=== PATIENT | male | born 1995 | race Caucasian/White ===

== ENCOUNTER 2018-01-28 11:04 | Inpatient (IN) ==
[2018-01-28] MEDS ORDERED: Tetanus/Diphtheria Toxoid Adult Vaccine Inj 0.5 ML Vial IM ONE (12:06)
[2018-01-28] MEDS ORDERED: Lidocaine PF 1% Inj 30 ML Vial INFILTRATN ONE (12:34)
--- NOTE | 2018-01-28 12:52 | XR ---
EXAM DATE: 01/28/2018 12:48 PM EST AGE/SEX: 22 years / Male INDICATIONS: Right hand, second digit pain after being sliced by a washer drawer. CLINICAL DATA: This is the patient's initial encounter. Patient reports that signs and symptoms have been present for 1 day and indicates a pain score of 10/10. MEDICAL/SURGICAL HISTORY: None. None. COMPARISON: No prior exams available for comparison. FINDINGS: There is a soft tissue injury at the distal aspect of the second digit with agitation of the distal s oft tissues. There also appears to be fracturing at the distal aspect of the tuft of the second dista l phalanx. Remaining bony structures appear intact. CONCLUSION: Amputation at the distal aspect of the second digit with some fracturing at the superior aspect of th e tuft of the second distal phalanx. Electronically signed by: Francisco Wilson MD 01/28/2018 12:51 PM EST
--- NOTE | 2018-01-28 13:37 | ED ---
HPI General Chief Complaint: Skin/Abscess/Foreign Body Stated Complaint: Poss Finger Cut off Time Seen by Provider: 01/28/18 11:44 History of Present Illness HPI narrative: 22-year-old male presents to the emergency department with complaint of cutting the tip of his right index finger off between a washing machine in a cabinet when moving it today while at work. Left hand dominant. Unknown tetanus status and needs it updated. Denies paresthesias, loss of sensation, decreased range of motion to the affected finger. Rates pain 8/10. Has applied pressure and a dressing for symptom management. No other treatments tried. History of depression. No known allergies. No primary care provider. Has no other medical complaints. No other modifying factors or associated signs and symptoms. 2 1. Amputation of tip of finger Related Data Home Medications Medication Instructions Recorded Confirmed sertraline [Zoloft] 50 mg PO BID 01/28/18 01/28/18 Allergies Allergy/AdvReac Type Severity Reaction Status Date / Time No Known Allergies Allergy Verified 01/28/18 11:37 Review of Systems ROS: all other systems reviewed are negative [facility] Medical History Medical History Depression (Acute) Family History Family History Other Diabetes Heart attack Social History Social History Substance History: No History of Abuse Second Hand Smoke Exposure: No Smoking Status: Former smoker Tobacco Type: E-Cigarettes How Often Do You Have a Drink Containing Alcohol: Never Recent Travel in [facility] within the Last 8 Weeks: No Recent Out of Country Travel within the Last 8 Weeks: No Immunization History Tetanus Immunization: Unsure Exam Narrative Exam Narrative: GENERAL: Well-nourished, well-developed male patient, in no acute distress SKIN: Warm and dry. Distal, lateral aspect of right index finger with partial amputation, involving nail bed; bleeding controlled; fingers pink and warm with good cap refill and sensory intact; full range of motion. HEAD: Atraumatic. Normocephalic. EYES: Pupils equal and round. No scleral icterus. No injection or drainage. ENT: Mucosa pink and moist. Airway patent. NECK: Trachea midline. CARDIOVASCULAR: Regular rate. RESPIRATORY: No accessory muscle use. GASTROINTESTINAL: Flat. MUSCULOSKELETAL: No obvious deformities. No clubbing. No cyanosis. No edema. NEUROLOGICAL: Awake and alert. Oriented 3. No obvious cranial nerve deficits. Motor grossly within normal limits. Normal speech. PSYCHIATRIC: Appropriate mood and affect; insight and judgment normal. Procedures Laceration Laceration 1: Site: hand (Right index finger) Side (If applicable): right Size (cm): 1.5 Description: other (Partial amputation of tip of finger) Anesthetic used: lidocaine 1% Anesthesia technique:: nerve block (Digital block) Pre-repair:: wound explored and irrigated extensively Skin layer closed with: prolene Size (cm): 3-0 Number of sutures:: 1 Technique:: horizontal mattress Course Initial Documented Vital Signs Temperature 98.6 F 01/28/18 11:11 Pulse Rate 84 01/28/18 11:11 Respiratory Rate 17 01/28/18 11:11 Blood Pressure 129/87 01/28/18 11:11 Pulse Oximetry 98 01/28/18 11:11 Last Documented Vital Signs Temperature 98.6 F 01/28/18 22:30 Pulse Rate 85 01/28/18 22:30 Respiratory Rate 15 01/28/18 22:30 Blood Pressure 120/68 01/28/18 22:30 Pulse Oximetry 100 01/28/18 22:30 Medical Decision Making RAFIQ Attestation RAFIQ supervised visit: Yes Attestation: I, Dr. Amaro, have reviewed the advance practice practitioner's documentation and am in agreement, met with the patient face to face, made the diagnosis, and the medical decision making was done by me. *My assessment and Findings: Patient is a 22-year-old male who presents after a finger injury. He was seen primarily by the [facility] contacted hand surgery. The hand surgeon medical transcription radiology asked her to try in close the flap. She tried several times but was unable to do so successfully in the emergency department. She then called the hand surgeon back who recommended admission and operative repair. Patient was admitted to Dr. Arreola, hospitalist medical transcription radiology for further evaluation and management. Tetanus was updated and he was given Ancef. Of note the patient's father became belligerent while in the emergency department (while awaiting for the call back from the hand surgeon) and had to be asked to step away for a short period of time. He eventually calmed down and was brought back into the room. MDM Narrative Medical decision making narrative: 22-year-old male with partial amputation of the tip of his right index finger. Tetanus updated in the ER. Right index finger x-ray ordered. [place] ordered for pain. Right index finger x-ray concludes: Amputation at the distal aspect of the second digit with some fracturing at the superior aspect of the tuft of the second distal phalanx. IV site obtained and 1 g of Ancef ordered. Call placed to hand surgeon. I spoke with Dr. Barlow, hand surgeon and she would like me to attempt to approximate the amputation and to cover the bone. See my procedure note for laceration repair. I was unable to approximate the wound well enough to cover the exposed bone. I called and spoke with Dr. Jory Barlow and the patient will be admitted and she will take the patient to the OR. Preop labs ordered. Patient is experiencing increase in pain to the finger; morphine and Zofran ordered. Patient admitted to medical. Medical Screen Exam Complete: Yes Emergency Medical Condition: Yes Differential Diagnosis Differential Diagnosis: Amputation, skin avulsion, laceration Lab Data Result diagrams: 01/28/18 17:30 01/28/18 17:30 Lab Results 01/28/18 01/28/18 01/28/18 Range/Units 17:30 17:30 17:30 WBC 9.4 (4.0-11.0) th/mm3 RBC 5.18 (4.50-5.90) mil/mm3 Hgb 16.0 (13.0-17.0) gm/dL Hct 48.1 (39.0-51.0) % MCV 92.7 (80.0-100.0) fL MCH 30.9 (27.0-34.0) pg MCHC 33.4 (32.0-36.0) % RDW 15.6 (11.6-17.2) % Plt Count 162 (150-450) th/mm3 MPV 7.8 (7.0-11.0) fL Prelim Diff (Auto) Slide review pending Neut % (Auto) 71.3 H (16.0-70.0) % Lymph % (Auto) 20.6 (9.0-44.0) % [place] % (Auto) 7.2 (0.0-8.0) % Eos % (Auto) 0.7 (0.0-4.0) % Baso % (Auto) 0.2 (0.0-2.0) % Neut # (Auto) 6.7 (1.8-7.7) th/mm3 Lymph # (Auto) 1.9 (1.0-4.8) th/mm3 Freeborn # (Auto) 0.7 (0.0-0.9) th/mm3 Eos # (Auto) 0.1 (0.0-0.4) th/mm3 Baso # (Auto) 0.0 (0.0-0.2) th/mm3 WBC Differential . Diff Scan Auto diff confirmed Differential Comment . Platelet Estimate Normal (Normal) Platelet Morphology Normal (Normal) PT 10.3 (9.8-11.6) sec INR 1.0 Ratio APTT 23.3 L (23.4-31.7) sec Sodium 138 (136-145) meq/L Potassium 3.7 (3.5-5.1) meq/L Chloride 107 (98-107) meq/L Carbon Dioxide 24.3 (21.0-32.0) meq/L Anion Gap 7 (5-15) meq/L BUN 10 (7-18) mg/dL Creatinine 0.74 (0.60-1.30) mg/dL Estimated GFR Greater than 89 (>89) mL/min Random Glucose 85 (74-106) mg/dL Calcium 8.9 (8.5-10.1) mg/dL Total Bilirubin 0.4 (0.2-1.0) mg/dL AST 20 (15-37) U/L ALT 19 (12-78) U/L Alkaline Phosphatase 80 (45-117) U/L Total Protein 7.9 (6.4-8.2) g/dL Albumin 4.1 (3.4-5.0) g/dL Imaging Data Radiologist's impression: Finger X-Ray 01/28/18 12:05 CONCLUSION: Amputation at the distal aspect of the second digit with some fracturing at the superior aspect of the tuft of the second distal phalanx. Discharge Plan Discharge Disposition Patient Disposition: ED Admit(ED Internal Use Only) Discharge Condition Condition: Stable Discharge Order Discharge Orders: Discharge Order (Routine); Ordered 01/28/18 Ordered By: Jory Cook Hand Surgery Clear for Discharge (Routine); Ordered 01/28/18 Ordered By: Jory Barlow ED Use Only Admit Order (Routine); Ordered 01/28/18 Ordered By: Kayla Soler Discharge Details Anticipated Discharge Date: 01/28/18 Diagnosis: Amputation finger, Injury of finger Physicians Team ED Provider: Yadi Amaro ED Midlevel Provider: Kayla Soler Primary Care Provider: Primary Care Daina Whipple Attending Provider: Tanner Arreola Other Providers: Jory Barlow Discharge Interventions Interventions: ED Discharge Assessment Last Done: 01/28/18 18:16 Status ED Status: Admitted Observation Patient
[2018-01-28] MEDS ORDERED: ceFAZolin 1 GM Premix Inj 1 GM/50 ML PIGGYBACK IV.SIG ONE (14:00)
[2018-01-28] MEDS ORDERED: Morphine Inj 4 MG/ML Vial IV.PUSH ONE (14:55)
--- NOTE | 2018-01-28 16:46 | P.HP ---
History of Present Illness Primary Care Physician: No Primary Care Physician History of Present Illness: 22-year-old male being admitted for partial finger amputation Patient was in his usual state of health until earlier today when he was at work and attempting to lift a washing machine and in the process sliced his finger under the pressure of weight against a sharp drawer edge and noted a chunk of flesh fall off his left index finger. Denies any nausea or vomiting. Did not feel much pain in the beginning but noted that his finger was bleeding profusely, thus was brought over to the emergency department. In the emergency department plain x-ray demonstrated a loss of soft tissue on the lateral aspect of his index finger tip but his distal bony phalanx is preserved upon my independent review. He had pressure applied, suturing was attempted of the flush component but was unable to be successfully flapped over. Given 1 g of Ancef, hand surgery has been consulted. Review of Systems All other systems reviewed negative except as stated in HPI PMFSH - History History Provided By: Patient - Medical History Medical History: Medical History (Last Reviewed 01/28/18 @ 16:41 by Tanner Arreola MD) Depression - Family History Family History: Family History (Last Updated 01/28/18 @ 16:41 by Tanner Arreola MD) Other Diabetes Heart attack - Social History I have reviewed the patient's Social History: Yes - Tobacco History Smoking Status: Former smoker - Alcohol History How Often Do You Have a Drink Containing Alcohol: Never - Substance Use History Substance History: No History of Abuse - Travel History Recent Travel in the [place] Within the Last 8 Weeks: No Recent Travel Out of the Country Within the Last 8 Weeks: No - Immunization History Tetanus Immunization: Unsure Medications and Allergies Active Medications: Active Medications Sodium Chloride (Ns Flush) 2 ml IV.FLUSH BID KIKE Sodium Chloride (Ns Flush) 2 ml IV.FLUSH UNSCH PRN PRN Reason: FLUSH AFTER USING IV ACCESS Allergies Allergy/AdvReac Type Severity Reaction Status Date / Time No Known Allergies Allergy Verified 01/28/18 11:37 Home Medications Medication Instructions Recorded Confirmed Type sertraline [Zoloft] 50 mg PO BID 01/28/18 01/28/18 History Exam Vital signs: Vital Signs 01/28/18 11:11 01/28/18 15:28 Temperature 98.6 F Pulse Rate 84 55 L Respiratory Rate 17 18 Blood Pressure 129/87 133/82 Pulse Oximetry 98 99 Intake & Output 01/27/18 01/28/18 01/28/18 18:59 06:59 18:59 Intake Total 50 / 50 Balance 50 / 50 Weight 99.79 kg Intake: IV 50 / 50 Ancef 1 GM Premix Inj 1 gm In 50 / 50 50 ml @ 100 mls/hr IV.SIG ONCE ONE Rx#:[id number] Narrative: VS: afebrile GENERAL: Well-nourished middle-aged male SKIN: Warm and dry. EYES: No scleral icterus. No injection or drainage. ENT: No nasal bleeding or discharge. Mucous membranes pink and moist. CARDIOVASCULAR: Regular rate and rhythm. no murmurs RESPIRATORY: No accessory muscle use. Clear to auscultation. Breath sounds equal bilaterally. GASTROINTESTINAL: Abdomen soft, non-tender, nondistended. Extremities: No clubbing, cyanosis, or edema. No obvious deformities. Left index finger wrapped in gauze, I undressed it and noted a exposed amputation injury with exposed soft tissue and muscle and half the nail bed gone, profusely bleeding but is well controlled with gauze and pressure, I am unable to visualize any bone of the distal phalanx MUSCULOSKELETAL: adequate muscle bulk and tone for age and habitus NEUROLOGICAL: Awake and alert. No obvious cranial nerve deficits. No facial droop nor slurred speech noted. PSYCHIATRIC: Appropriate mood and affect; insight and judgment normal. Results - Labs CBC & Chem 7: 01/28/18 17:30 01/28/18 17:30 - Imaging Impressions Finger X-Ray 01/28/18 12:05 CONCLUSION: Amputation at the distal aspect of the second digit with some fracturing at the superior aspect of the tuft of the second distal phalanx. Caprini VTE Risk Assessment Caprini VTE Risk Assessment: No/Low Risk (score <= 1) Caprini Risk Assessment Model: Point Value = 1 Point Value = 2 Point Value = 3 Point Value = 5 Age 41-60 Minor surgery BMI > 25 kg/m2 Swollen legs Varicose veins or History of unexplained or recurrent spontaneous Oral contraceptives or hormone replacement Sepsis (< 1 month) Serious lung disease, including pneumonia (< 1 month) Abnormal pulmonary function Acute myocardial infarction Congestive heart failure (< 1 month) History of inflammatory bowel disease Medical patient at bed rest Age 61-74 Arthroscopic surgery Major open surgery (> 45 min) Laparoscopic surgery (> 45 min) Malignancy Confined to bed (> 72 hours) Immobilizing plaster cast Central venous access Age >= 75 History of VTE Family history of VTE Factor V Leiden Prothrombin [id number] Lupus anticoagulant Anticardiolipin antibodies Elevated serum homocysteine Heparin-induced thrombocytopenia Other congenital or acquired thrombophilia Stroke (< 1 month) Elective arthroplasty Hip, pelvis, or leg fracture Acute spinal cord injury (< 1 month) Prophylaxis Regimen: Total Risk Factor Score Risk Level Prophylaxis Regimen 0-1 Low Early ambulation 2 Moderate Order ONE of the following: *Sequential Compression Device (SCD) *Heparin 5000 units SQ BID 3-4 Higher Order ONE of the following medications: *Heparin 5000 units SQ TID *Enoxaparin/Lovenox 40 mg SQ daily (WT < 150 kg, CrCl > 30 mL/min) *Enoxaparin/Lovenox 30 mg SQ daily (WT < 150 kg, CrCl > 10-29 mL/min) *Enoxaparin/Lovenox 30 mg SQ BID (WT < 150 kg, CrCl > 30 mL/min) AND/OR *Sequential Compression Device (SCD) 5 or more Highest Order ONE of the following medications: *Heparin 5000 units SQ TID (Preferred with Epidurals) *Enoxaparin/Lovenox 40 mg SQ daily (WT < 150 kg, CrCl > 30 mL/min) *Enoxaparin/Lovenox 30 mg SQ daily (WT < 150 kg, CrCl > 10-29 mL/min) *Enoxaparin/Lovenox 30 mg SQ BID (WT < 150 kg, CrCl > 30 mL/min) AND *Sequential Compression Device (SCD) Assessment and Plan - Plan 22-year-old male being admitted for partially amputated distal finger Partially amputated distal finger Seems to have been a soft tissue avulsion/amputation injury -Received antibiotics, hand surgery consulted We will place amputated specimen in moistened gauze and immerse it in bag, place bag in crushed ice and water -Pain control -apply pressure to injury site
[2018-01-28 17:58] LABS: Baso % (Auto) 0.2 % (0.0-2.0); Eos # (Auto) 0.1 th/mm3 (0.0-0.4); Eos % (Auto) 0.7 % (0.0-4.0); Hematocrit 48.1 % (39.0-51.0); Lymph # (Auto) 1.9 th/mm3 (1.0-4.8); Lymph % (Auto) 20.6 % (9.0-44.0); Mean Corpuscular HGB Conc 33.4 % (32.0-36.0); Mean Corpuscular Hemoglobin 30.9 pg (27.0-34.0); Mean Corpuscular Volume 92.7 fL (80.0-100.0); Mean Platelet Volume 7.8 fL (7.0-11.0); Mono # (Auto) 0.7 th/mm3 (0.0-0.9); Mono % (Auto) 7.2 % (0.0-8.0); Neut # (Auto) 6.7 th/mm3 (1.8-7.7); Neut % (Auto) 71.3 % (16.0-70.0); Platelet Count 162 th/mm3 (150-450); Red Blood Count 5.18 mil/mm3 (4.50-5.90); Red Cell Distribution Width 15.6 % (11.6-17.2); White Blood Count 9.4 th/mm3 (4.0-11.0)
[2018-01-28 18:10] LABS: Alkaline Phosphatase 80 U/L (45-117); Total Protein 7.9 g/dL (6.4-8.2)
[2018-01-28 18:18] LABS: Alanine Aminotransferase 19 U/L (12-78); Albumin 4.1 g/dL (3.4-5.0); Anion Gap 7 meq/L (5-15); Aspartate Aminotransferase 20 U/L (15-37); Blood Urea Nitrogen 10 mg/dL (7-18); Calcium 8.9 mg/dL (8.5-10.1); Carbon Dioxide 24.3 meq/L (21.0-32.0); Chloride 107 meq/L (98-107); Glomerular Filtration Rate Greater Than 89 mL/min (>89); Glucose,Random 85 mg/dL (74-106); Potassium 3.7 meq/L (3.5-5.1); Sodium 138 meq/L (136-145)
[2018-01-28 18:27] LABS: Activated Partial Thrombo Time 23.3 sec (23.4-31.7); Prothrombin Time 10.3 sec (9.8-11.6)
[2018-01-28 18:32] LABS: Platelet Estimate Normal (Normal); Platelet Morphology Normal (Normal)
[2018-01-28] MEDS ORDERED: Lidocaine 2% Inj 50 ML Vial ONE (19:13)
[2018-01-28] MEDS ORDERED: Neomycin/Polymyxin G.U. Irrigant 1 ML Ampul ONE (19:18)
[2018-01-28] MEDS ORDERED: Neomycin/Polymyxin G.U. Irrigant 1 ML Ampul IRRIGATION ONE (20:46)
[2018-01-28] MEDS ORDERED: fentaNYL Citrate Inj 100 MCG/2 ML Ampul ONE (21:50)
[2018-01-28 22:02] VITALS: O2SAT 100
[2018-01-28] MEDS ORDERED: *morphine SULFATE 10 MG/ML PERIprocedure ONLY ONE ×2 (22:08→22:37)
--- NOTE | 2018-01-28 22:29 | P.EN ---
Discussed with Dr. Barlow who states patient can be discharged. She states his surgery was not as extensive as she thought, and he is stable. She will give Narcotic rx and he can be discharged tonight. Discharge patient to home Condition on discharge: stable Regular Diet as tolerated Ad Shaylee activity Rx written: Saulo rueda per hand surgery Follow-up with primary care physician and hand surgery Testing Rehab Instance Type Right Finger - 2nd Digit: Wound Type: Traumatic Wound Wound Length: 2
[2018-01-28 22:59] VITALS: BP 120/68; PULSE 85; RESP 15; TEMP 98.6
--- NOTE | 2018-01-28 23:30 | MB ---
cc: Jory Barlow MD DATE: 01/28/2018 REASON FOR CONSULTATION: Partial amputation, right index finger. HISTORY OF PRESENT ILLNESS: Quan Mckee is a pleasant 22-year-old left-hand dominant male who states that he was at work today lifting a heavy washing machine when his right index finger became caught and he noticed a partial amputation of the right index finger. The patient denies prior significant injury to the right hand. In his free time, the patient enjoys music and he is originally from [place]. The patient does live in [place]. He reports pain over the right index finger. The patient underwent a digital block in the emergency room by the emergency physician for possible closure, but they were uncomfortable closing the finger as there was exposed bone. I was asked to see the patient. He last had something to eat or drink around approximately 10 a.m. PAST MEDICAL HISTORY: Depression. SOCIAL HISTORY: The patient denies tobacco, alcohol or drug use. He does work with a moving company and enjoys music. PHYSICAL EXAMINATION: The patient is alert and oriented. Dressing removed from the right index finger. There is an oblique partial amputation of the right index finger more proximal radially and distal ulnarly. There is exposed bone. Approximately half of the nail bed and nail plate have been amputated. The patient is able to flex the FDP. He is also able to fire FDS. Sensation is decreased on the radial and ulnar side after the digital block. Good capillary refill proximal to the amputation site. IMAGING DATA: X-ray reviewed, which again shows a partial amputation of the right index finger with amputation through the distal phalanx. The patient was given IV antibiotics in the emergency room. ASSESSMENT AND PLAN: A 22-year-old left-hand dominant male with a partial oblique amputation of the right index finger involving the nail bed and distal phalanx. Treatment options were discussed with the patient. He elected to proceed with surgical intervention including irrigation and debridement, possible revision amputation through the distal phalanx or through the distal interphalangeal joint versus skin graft. The patient elected to proceed. Risks were explained, which include, but are not limited to wound complication, infection, stiffness, pain, need for additional procedures, shortening of the finger and he elected to proceed. This was done at the earliest available time in the operating room. MD Kyle Sparrow , 10:58 PM , 11:02 PM LYRIC
--- NOTE | 2018-01-28 23:36 | MP ---
cc: Jory Barlow MD DATE OF OPERATION: 01/28/2018 PREOPERATIVE DIAGNOSIS: Partial amputation of right index finger to the distal phalanx. POSTOPERATIVE DIAGNOSIS: Partial amputation of right index finger to the distal phalanx. PROCEDURES PERFORMED: 1. Irrigation and debridement of open wound, including skin, subcutaneous tissue, muscle and exposed bone. 2. Revision amputation, right index finger, shortening the bone through the distal phalanx with direct neurectomies and closure. 3. Interpretation of fluoroscopy by the surgeon, right index finger. SURGEON: Jory Barlow MD ANESTHESIA: General and local. TOURNIQUET TIME: 40 minutes at 200 mmHg. INDICATION FOR PROCEDURE: Quan Mckee is a 22-year-old left-hand dominant male who sustained an injury at work today which involved partial amputation of the right index finger to the distal phalanx. The wound was unable to be closed by the emergency physician. A hand surgery evaluation was requested. The patient elected to proceed with surgical intervention. Risks were explained, which include, but are not limited to wound complication, infection, nail deformity, persistent pain, paresthesias, shortening of the finger and he elected to proceed. DESCRIPTION OF PROCEDURE: The patient was identified in the preoperative holding and the correct extremity was marked. The patient was taken to the operating room. Anesthesia was induced. The right upper extremity was prepped and draped in normal sterile fashion. The prior sutures from the emergency room were removed. There was obvious exposed bone. I was unable to close the flap of skin over the bone. The decision was made to shorten the bone to allow closure. Care was taken to protect the insertion of the flexor digitorum profundus. The wound was irrigated and debrided with antibiotic saline and rongeurs. The amputation site was then closed end to end with chromic. After release of the tourniquet, there was sluggish capillary refill, so I removed the sutures and then closed the wound again loosely with chromic. The patient at this time maintained good capillary refill of less than 2 seconds to the tip of the finger. Care was taken to suture the nail plate rather then tighten the nail bed over the area. Approximately 10 mL of 2% lidocaine with no epinephrine was used to perform a digital block. The patient was placed into a soft dressing. He will be discharged today with oral antibiotics as well as pain medication. He is to be off work at this time. I will see him back in approximately 2 weeks. X-rays were performed throughout the procedure by the surgeon to evaluate the amputation site. The patient was awoken from anesthesia without any complications. MD JIMMY Sparrow/juan , 11:01 PM , 11:07 PM LYRIC
== END 2018-01-29 06:11 | disposition home or self-care (01) ==
LOC: NEPB 11:04 → NEDA 11:04 → OBSVTOIN 16:04 → NEPFCDU 18:00
PROVIDERS: ADMIT Hospitalist; ATTEND Hospitalist